=== PATIENT | male | born 1960 | race Caucasian/White ===

== ENCOUNTER 2023-03-16 10:00 | Outpatient (OUT) | payer MEDICARE, SELFPAY ==
[2023-03-16 09:34] LABS: Microalbumin Urine Random <1.3 mg/dL (<=30.0)
[2023-03-16 09:37] LABS: Estimated Average Glucose 206 mg/dL; Glycohemoglobin A1C 8.8 % (4.5-6.2)
[2023-03-16 10:22] LABS: Alanine Aminotransferase 36 U/L (16-63); Albumin Level 3.6 g/dL (3.4-5.0); Alkaline Phosphatase 50 U/L (46-116); Anion Gap 3.4; Aspartate Amino Transferase 22 U/L (15-37); BUN Creatinine Ratio 11.3; Bilirubin Total 0.7 mg/dL (0.2-1.0); Calcium 8.9 mg/dL (8.5-10.1); Carbon Dioxide 30.2 mmol/L (21.0-32.0); Chloride 103 mmol/L (98-107); Chol HDL Ratio 4.2; Cholesterol 158 mg/dL (<=200); Estimated GFR (African America >60 (>=60); Estimated GFR (Non-African Ame >60 (>=60); Globulin 3.7 g/dL; Glucose 180 mg/dL (74-106); HDL Cholesterol 38 mg/dL (40-60); Potassium 3.6 mmol/L (3.5-5.1); Sodium 133 mmol/L (136-145); Total Protein 7.3 g/dL (6.4-8.2); Triglycerides 103 mg/dL (<=150); VLDL CHOLESTEROL 20.6 mg/dL
[2023-03-16 10:31] LABS: Prostate Specific Antigen Scrn 1.98 ng/mL (<=4.00)
[2023-03-16 10:37] LABS: Basophils Absolute Auto 0.1 10^3/uL (0.0-0.1); Eosinophils Absolute Auto 0.3 10^3/uL (0.0-0.7); Eosinophils Percent Auto 3.9 % (0.9-7.0); Hematocrit 43.3 % (42.0-54.0); Hemoglobin 14.3 g/dL (14.0-18.0); Immature Granulocytes Abs Auto 0.02 10^3/uL (0.00-0.03); Immature Granulocytes Pct Auto 0.3 % (0.0-0.5); Lymphocytes Absolute Auto 1.2 10^3/uL (1.2-3.8); Lymphocytes Percent Auto 16.7 % (20.5-60.0); Mean Corpuscular Hemoglobin 28.7 pg (25.9-34.0); Mean Corpuscular Volume 86.8 fL (80.0-94.0); Mean Platelet Volume 10.6 fL (9.5-13.5); Monocytes Absolute Auto 0.5 10^3/uL (0.3-0.8); Monocytes Percent Auto 7.2 % (1.7-12.0); Neutrophils Absolute Auto 5.1 10^3/uL (1.4-6.5); Neutrophils Percent Auto 70.9 % (43.0-75.0); Platelet Count 238 10^3/uL (150-450); Red Blood Count 4.99 10^6/uL (4.70-6.10); Red Cell Distribution Width 13.3 % (11.0-15.0); White Blood Count 7.1 10^3/uL (4.0-11.0)
== END 2023-03-16 10:01 | disposition home or self-care (01) ==
LOC: LAB 10:01
PROVIDERS: PCP Family Medicine; Visit Provider Family Medicine
DX: E11.65 Type 2 diabetes mellitus with hyperglycemia (principal); E78.5 Hyperlipidemia, unspecified; R03.0 Elevated blood-pressure reading, without diagnosis of hypertension; Z12.5 Encounter for screening for malignant neoplasm of prostate
CPT/HCPCS: 36415; 80053; 80061; 82043; 83036; 85025; G0103

== ENCOUNTER 2023-06-25 15:31 | Outpatient (OUT) | payer MEDICARE, SELFPAY ==
--- NOTE | 2023-06-25 15:37 | US_ITS ---
The [address] [address] Patient Name: FLORIAN CARR MRN: [id number] date: 1960 Sex: M Assigned Patient Location: US Current Patient Location: US Accession/Order Number: [id number] Exam Date: 06/25/2023 15:40 Report Date: 06/25/2023 16:09 At the request of: ANIYA GALLOWAY Procedure: US venous doppler LE RT EXAM: US venous doppler LE RT HISTORY: Localized Edema R60.0 COMPARISON: Venous ultrasound study of both legs dated 08/09/2021. TECHNIQUE: Utilizing color-flow duplex scanning and Doppler flow analysis, deep venous system of the right leg was evaluated. FINDINGS: There is normal compressibility seen throughout. There is gross patency identified. Augmentation is seen. There is no evidence of focal area of increased echogenicity within the deep venous system to suggest thrombosis. Visualized portions of the greater saphenous vein and lesser saphenous vein of the superficial venous system appear unremarkable. Subcutaneous edema is noted. US/US venous doppler LE RT IMPRESSION: Grossly unremarkable imaging study of the deep venous system of the right leg as described, no definite evidence of deep venous thrombosis can be identified. Electronically authenticated by: SIA LUNA Date: 06/25/2023 16:09
== END 2023-06-25 15:32 | disposition home or self-care (01) ==
PROVIDERS: PCP Family Medicine; Visit Provider Family Medicine
DX: R60.0 Localized edema (principal)
CPT/HCPCS: 93971

== ENCOUNTER 2024-07-03 09:48 | Outpatient (OUT) | payer MEDICARE, SELFPAY ==
--- OUTSIDE RECORDS SUMMARY | 2024-07-03 10:01 | XMS_ITS | CCD ---
Author Organization [facility] Care Team Providers Care Patent Leather Sorter Name Role Phone REQUEST, DR BOOTHE LISTED Attending Unavaila ble REQUEST, DR BOOTHE LISTED Admitting Unavaila ble LOCKWOOD, DR KAE Kent Primary Care Unavailable REQUEST, DR BOOTHE LISTED Consulting Unavaila ble LOCKWOOD, DR KAE Kent Consulting Unavailable LOCKWOOD, DR KAE Kent Attending Unavailable LOCKWOOD, DR KAE Kent Primary Care Unavailable LOCKWOOD, DR KAE Kent Admitting Unavailable LOCKWOOD, DR KAE Kent Attending Unavailable ZIEBER, DR GARO Love Consulting Unavailable LOCKWOOD, DR KAE Kent Admitting Unavailable LOCKWOOD, DR KAE Kent Primary Care Unavailable LOCKWOOD, DR KAE Kent Consulting Unavailable LOCKWOOD, DR KAE Kent Consulting Unavailable LOCKWOOD, DR KAE Kent Primary Care Unavailable LOCKWOOD, DR KAE Kent Attending Unavailable LOCKWOOD, DR KAE Kent Admitting Unavailable LOCKWOOD, DR KAE Kent Consulting Unavailable LOCKWOOD, DR KAE Kent Attending Unavailable LOCKWOOD, DR KAE Kent Admitting Unavailable LOCKWOOD, DR KAE Kent Primary Care Unavailable LOCKWOOD, DR KAE Kent Consulting Unavailable LOCKWOOD, DR KEA Kent Attending Unavailable LOCKWOOD, DR KAE Kent Admitting Unavailable LOCKWOOD, DR KAE Kent Primary Care Unavailable LOCKWOOD, DR KAE Kent Consulting Unavailable LOCKWOOD, DR KAE Kent Attending Unavailable LOCKWOOD, DR KAE Kent Admitting Unavailable LOCKWOOD, DR KAE Kent Primary Care Unavailable LOCKWOOD, DR KAE Kent Attending Unavailable LOCKWOOD, DR KAE Kent Primary Care Unavailable LOCKWOOD, DR KAE Kent Admitting Unavailable WEST, DR BIBIANA Adams Consulting Unavailable LOCKWOOD, DR KAE Kent Consulting Unavailable LOCKWOOD, DR KAE Kent Consulting Unavailable LOCKWOOD, DR KAE Kent Attending Unavailable LOCKWOOD, DR KAE Kent Primary Care Unavailable LOCKWOOD, DR KAE Kent Admitting Unavailable JAREN ORTEGA Attending Unavailable SHANNON, JAREN Admitting Unavailable SHANNON, JAREN Consulting Unavailable LOCKWOOD, DR KAE Kent Primary Care Unavailable PAY, DR HINTON Attending Unavailable PAY, DR HINTON Admitting Unavailable LOCKWOOD, DR KAE Kent Primary Care Unavailable ZIEBER, DR WYMAN R Consulting Unavailable DR MARY JANE VANG Consulting Unavailable Kae Lockwood Unavailable Allergies Allergy Classification Reported Allergen(s) Allergy Type Date of Onset Reaction(s) Facility (3 sources) patient allergy list reviewed by nurse or physicia Propensity to adverse reactions Comment:Done [employer] Other (3 sources) Allergies Reconciled Propensity to adverse reactions Unknown [employer] Other Medications Current Medications Medication Drug Class(es) Dates Sig (Normalized) Sig (Original) atorvastatin 40 mg oral tablet (3 sources) HMG-CoA Reductase Inhibitor Start: 12-21-2021 take 1 tablet by mouth once daily Atorvastatin Calcium 40 MG Atorvastatin Calcium 40MG, 1 (one) Tablet daily # 90, 12/21/2021, Ref. x2. Active Oral daily Dec, Active glipiZIDE 5 mg / metFORMIN hydrochloride 500 mg oral tablet (2 sources) Biguanide, Sulfonylurea take 1 tablet by mouth every twelve hours glipiZIDE-metFORM IN HCl 5-500 MG 1 tablet with a meal Orally bid Active metFORMIN hydrochloride 500 mg oral tablet (1 source) Biguanide Start: 11-01-2022 take 1 tablet by mouth twice daily metFORMIN HCl 500 MG 1 tablet Orally twice daily for 90 days Oct, Active sulfamethoxazole 800 mg / trimethoprim 160 mg oral tablet (2 sources) Dihydrofolate Reductase Inhibitor Antibacterial, Sulfonamide Antimicrobial take 1 tablet by mouth every twelve hours Bactrim DS 800-160 MG 1 tablet Orally Twice a day for 7 days Active Problems Active Problems Problem Classification Problem Date Documented Da te Episodic/Chronic Diabetes mellitus with complications (8 sources) Hyperglycemia due to type 2 diabetes mellitus; Translations: [Type 2 diabetes mellitus with hyperglycemia] Chronic Disorders of lipid metabolism (7 sources) Hyperlipidemia; Translations: [Hyperlipidemia, unspecified] Chronic Essential hypertension (4 sources) Essential (primary) hypertension; Translations: [Essential hypertension] Onset: 08-29-2021 Chronic Genitourinary symptoms and ill-defined conditions (3 sources) Polyuria; Translations: [Other polyuria] Episodic Osteoarthritis (3 sources) Localized, primary osteoarthritis of the shoulder region; Translations: [Primary osteoarthritis, right shoulder] Onset: 09-21-2014 Chronic Other circulatory disease (3 sources) Elevated blood-pressure reading without diagnosis of hypertension; Translations: [Elevated blood-pressure reading, without diagnosis of hypertension] Episodic Other circulatory disease (1 source) Elevated blood-pressure reading, without diagnosis of hypertension Episodic Other diseases of veins and lymphatics (4 sources) Lymphedema, not elsewhere classified; Translations: [LYMPHEDEMA NOT ELSEWHERE CLASSIFIED] Onset: 03-09-2021 Chronic Other diseases of veins and lymphatics (3 sources) Lymphedema; Translations: [Lymphedema, not elsewhere classified] Chronic Other nervous system disorders (3 sources) Aphasia; Translations: [Aphasia] Onset: 12-02-2014 Chronic Other nutritional; endocrine; and metabolic disorders (6 sources) Obese class II; Translations: [Body mass index (BMI) 36.0-36.9, adult] Chronic Other screening for suspected conditions (not mental disorders or infectious disease) (5 sources) Encounter for screening for malignant neoplasm of prostate; Translations: [ENC SCREEN MALIG NEOPLASM PROSTATE] Onset: 08-23-2021 Episodic Phlebitis; thrombophlebitis and thromboembolism (12 sources) Acute embolism and thrombosis of unspecified deep veins of right lower extremity; Translations: [Acute embolism and thrombosis of right popliteal vein] Onset: 07-07-2014 Episodic Residual codes; unclassified (1 source) Localized edema Episodic Skin and subcutaneous tissue infections (1 source) Cellulitis of right lower limb Episodic Past or Other Problems Problem Classification Problem Date Documented Da te Episodic/Chronic Immunizations and screening for infectious disease (4 sources) Encounter for immunization; Translations: [ENCOUNTER FOR IMMUNIZATION] Onset: 08-09-2021 Episodic Lymphadenitis (1 source) Localized enlarged lymph nodes; Translations: [LOCALIZED ENLARGED LYMPH NODES] Onset: 02-09-2021 Episodic Other nutritional; endocrine; and metabolic disorders (3 sources) Abnormal weight gain; Translations: [Abnormal weight gain] Onset: 02-15-2015 Episodic Other skin disorders (4 sources) Localized swelling, mass and lump, right lower limb; Translations: [LOC SWELL MASS LUMP RT LOWER LIMB] Onset: 02-07-2021 Episodic Spondylosis; intervertebral disc disorders; other back problems (3 sources) Low back pain; Translations: [Low back pain, unspecified] Onset: 12-02-2014 Episodic Results Test Name Value Interpretation Reference Range Facility GLYCOHEMOGLOBIN A1Con 05-04- 2022 ADA RECOMMENDATION SEE BELOW Normal [facility] Comment on above: Result Comment: ADA RECOMMENDED LIMIT 4.0 - 6.0 ADA THERAPEUTIC TARGET < 7.0 ACTION SUGGESTED > 7.0 Performed By: #### D ATA1C #### [facility] [address] [place] [address] Dr. Nabila Tavares Glucose [Mass/Vol] 194 mg/dL Normal [facility] Comment on above: Performed By: #### D ATA1C #### [facility] [address] [place] [address] Dr. Nabila Tavares HbA1c (Bld) [Mass fraction] 8.4 % Critically high 4.5-6.2 [facility] Comment on above: Performed By: #### D ATA1C #### [facility] [address] [place] [address] Dr. Nabila Tavares CBC AUTO DIFFon 08-23-2021 BASO # 0.1 103/ul Normal 0.0-0.1 [facility] Comment on above: Performed By: #### C BC #### [facility] [address] [place] [address] Dr. Nabila Tavares Basophils/100 WBC (Bld) 1.0 % Normal 0.2-2.0 [facility] Comment on above: Performed By: #### C BC #### [facility] [address] [place] [address] Dr. Nabila Tavares EO # 0.3 103/ul Normal 0.0-0.7 [facility] Comment on above: Performed By: #### C BC #### [facility] [address] [place] [address] Dr. Nabila Tavares Eosinophils/100 WBC (Bld) 3.9 % Normal 0.9-7.0 [facility] Comment on above: Performed By: #### C BC #### [facility] [address] [place] [address] Dr. Nabila Tavares Erythrocyte distribution width (RBC) [Ratio] 13.1 % Normal 11.0-15.0 [facility] Comment on above: Performed By: #### C BC #### [facility] [address] [place] [address] Dr. Nabila Tavares Hematocrit (Bld) [Volume fraction] 44.0 % Normal 42.0-54.0 [facility] Comment on above: Performed By: #### C BC #### [facility] [address] [place] [address] Dr. Nabila Tavares Hemoglobin (Bld) [Mass/Vol] 14.7 g/dL Normal 14.0-18.[address] [facility] Comment on above: Performed By: #### C BC #### [facility] [address] [place] [address] Dr. Nabila Tavares IG # 0.03 10e3/ul Normal 0.00-0.03 [facility] Comment on above: Performed By: #### C BC #### [facility] [address] [place] [address] Dr. Nabila Tavares IG % 0.4 % Normal 0.0-0.5 [facility] Comment on above: Performed By: #### C BC #### [facility] [address] [place] [address] Dr. Nabila Tavares LYMPH # 1.0 103/ul Critically low 1.2-3.8 [facility] Comment on above: Performed By: #### C BC #### [facility] [address] [place] [address] Dr. Nabila Tavares Lymphocytes/100 WBC (Bld) 15.0 % Critically low 20.5-60.0 [facility] Comment on above: Performed By: #### C BC #### [facility] [address] [place] [address] Dr. Nabila Tavares MANUAL DIFF REQ NO Normal [facility] Comment on above: Performed By: #### C BC #### [facility] [address] [place] [address] Dr. Nabila Tavares MCH (RBC) [Entitic mass] 28.2 pg Normal 25.9-34.0 [facility] Comment on above: Performed By: #### C BC #### [facility] [address] [place] [address] Dr. Nabila Tavares MCHC (RBC) [Mass/Vol] 33.4 g/dL Normal 29.9-35.2 [facility] Comment on above: Performed By: #### C BC #### [facility] [address] [place] [address] Dr. Nabila Tavares MCV (RBC) [Entitic vol] 84.5 fL Normal 80.0-94.0 [facility] Comment on above: Performed By: #### C BC #### [facility] [address] [address] [address] Nabila Tavares MONO # 0.6 103/ul Normal 0.3-0.8 [facility] Comment on above: Performed By: #### C BC #### [facility] [address] [place] [address] Dr. Nabila Tavares Monocytes/100 WBC (Bld) 8.1 % Normal 1.7-12.0 [facility] Comment on above: Performed By: #### C BC #### [facility] [address] [place] [address] Dr. Nabila Tavares NEUT # 5.0 103/ul Normal 1.4-6.5 [facility] Comment on above: Performed By: #### C BC #### [facility] [address] [place] [address] Dr. Nabila Tavares Neutrophils/100 WBC (Bld) 71.6 % Normal 43.0-75.0 [facility] Comment on above: Performed By: #### C BC #### [facility] [address] [place] [address] Dr. Nabila Tavares Platelet mean volume (Bld) [Entitic vol] 10.2 fL Normal 9.5-13.[address] [facility] Comment on above: Performed By: #### C BC #### [facility] [address] [place] [address] Dr. Nabila Tavares PLT 212 103/ul Normal 150-[address] [facility] Comment on above: Performed By: #### C BC #### [facility] [address] [place] [address] Dr. Nabila Tavares RBC 5.21 106/ul Normal 4.70-6.10 [facility] Comment on above: Performed By: #### C BC #### [facility] [address] [place] [address] Dr. Nabila Tavares WBC 6.9 103/ul Normal 4.0-11.0 [facility] Comment on above: Performed By: #### C BC #### [facility] [address] [place] [address] Dr. Nabila Tavares GLYCOHEMOGLOBIN A1Con 2021 ADA RECOMMENDATION ADA THERAPEUTIC TARGET 6.0 - 7.0 ACTION SUGGESTED > 7.0 Normal [facility] Comment on above: Performed By: #### A 1C #### [facility] [address] [place] [address] Dr. Nabila Tavares Glucose [Mass/Vol] 240 mg/dL Normal [facility] Comment on above: Performed By: #### A 1C #### [facility] [address] [place] [address] Dr. Nabila Tavares HbA1c (Bld) [Mass fraction] 10.0 % Critically high <=6.0 [facility] Comment on above: Performed By: #### A 1C #### [facility] [address] [place] [address] Dr. Nabila Tavares LIPID PROFILEon 08-23-2021 CHOL-HDL RATIO NORM SEE BELOW Normal [facility] Comment on above: Result Comment: 3.3 - 4.4 LOW RISK 4.4 - 7.1 AVERAGE RISK 7.1 - 11.0 MODERATE RISK >11.0 HIGH RISK Performed By: #### C MP, LIPID #### [facility] [address] [place] [address] Dr. Nabila Tavares Cholesterol [Mass/Vol] 217 mg/dL Critically high <=200 [facility] Comment on above: Performed By: #### C MP, LIPID #### [facility] [address] [place] [address] Dr. Nabila Tavares Cholesterol in HDL [Mass/Vol] 39 mg/dL Normal [facility] Comment on above: Performed By: #### C MP, LIPID #### [facility] [address] [address] [address] Nabila Tavares Cholesterol in LDL [Mass/Vol] 154.4 mg/dL Normal [facility] Comment on above: Performed By: #### C MP, LIPID #### [facility] [address] [place] [address] Dr. Nabila Tavares Cholesterol.total/Cho lesterol in HDL [Mass ratio] 5.6 {ratio} Normal [facility] Comment on above: Performed By: #### C MP, LIPID #### [facility] [address] [place] [address] Dr. Nabila Tavares HDL NORMAL > or = 60 mg/dl - LO W CARDIOVASCULAR RISK <40 mg/dl - HIGH CARDIOVASCULAR RISK Normal [facility] Comment on above: Performed By: #### C MP, LIPID #### [facility] [address] [place] [address] Dr. Nabila Tavares LDL CALC NORMAL SEE BELOW Normal [facility] Comment on above: Result Comment: <100 mg/dl OPTIMAL 100 - 129 mg/dl NEAR OR ABOVE OPTIMAL 130 - 159 mg/dl BORDERLINE HIGH 160 - 189 mg/dl HIGH >190 mg/dl VERY HIGH Performed By: #### C MP, LIPID #### [facility] [address] [place] [address] Dr. Nabila Tavares Triglyceride [Mass/Vol] 118 mg/dL Normal <=150 [facility] Comment on above: Performed By: #### C MP, LIPID #### [facility] [address] [place] [address] Dr. Nabila Tavares VLDL CALC 23.6 mg/dL Normal [facility] Comment on above: Performed By: #### C MP, LIPID #### [facility] [address] [address] [address] Nabila Tavares PROF 14(COMP METB)on 022 Albumin [Mass/Vol] 3.9 g/dL Normal 3.5-5.0 [facility] Comment on above: Performed By: #### C MP, LIPID #### [facility] [address] [place] [address] Dr. Nbaila Tavares Albumin/Globulin [Mass ratio] 1.0 {ratio} Normal [facility] Comment on above: Performed By: #### C MP, LIPID #### [facility] [address] [place] [address] Dr. Nabila Tavares ALP [Catalytic activity/Vol] 55 U/L Normal 38-126 [facility] Comment on above: Performed By: #### C MP, LIPID #### [facility] [address] [place] [address] Dr. Nabila Tavares ALT [Catalytic activity/Vol] 33 U/L Normal 21-72 [facility] Comment on above: Performed By: #### C MP, LIPID #### [facility] [address] [place] [address] Dr. Nabila Tavares Anion gap [Moles/Vol] 11.5 mmol/L Normal [facility] Comment on above: Performed By: #### C MP, LIPID #### [facility] [address] [place] [address] Dr. Nabila Tavares AST [Catalytic activity/Vol] 18 U/L Normal 17-59 [facility] Comment on above: Performed By: #### C MP, LIPID #### [facility] [address] [place] [address] Dr. Nabila Tavares Bilirubin [Mass/Vol] 0.8 mg/dL Normal 0.2-1.3 [facility] Comment on above: Performed By: #### C MP, LIPID #### [facility] [address] [place] [address] Dr. Nabila Tavares Calcium [Mass/Vol] 9.4 mg/dL Normal 8.4-10.2 [facility] Comment on above: Performed By: #### C MP, LIPID #### [facility] [address] [place] [address] Dr. Nabila Tavares Chloride [Moles/Vol] 98 mmol/L Normal 98-107 [facility] Comment on above: Performed By: #### C MP, LIPID #### [facility] [address] [place] [address] Dr. Nabila Tavares CO2 [Moles/Vol] 31.8 mmol/L Critically high 22.0-30.0 [facility] Comment on above: Performed By: #### C MP, LIPID #### [facility] [address] [address] [address] Nabila Tavares Creatinine [Mass/Vol] 1.19 mg/dL Normal 0.66-1.25 [facility] Comment on above: Performed By: #### C MP, LIPID #### [facility] [address] [address] [address] Nabila Tavares EGFR-AF MALAYSIAN >60 Normal >=60 [facility] Comment on above: Performed By: #### C MP, LIPID #### [facility] [address] [place] [address] Dr. Nabila Tavares EGFR-NON AF MALAYSIAN >60 Normal >=60 [facility] Comment on above: Performed By: #### C MP, LIPID #### [facility] [address] [place] [address] Dr. Nabila Tavares Globulin (S) [Mass/Vol] 3.8 g/dL Normal [facility] Comment on above: Performed By: #### C MP, LIPID #### [facility] [address] [address] [address] Nabila Tavares Glucose [Mass/Vol] 311 mg/dL Critically high 74-106 [facility] Comment on above: Performed By: #### C MP, LIPID #### [facility] [address] [address] [address] Nabila Tavares Potassium [Moles/Vol] 4.3 mmol/L Normal 3.4-5.0 [facility] Comment on above: Performed By: #### C MP, LIPID #### [facility] [address] [address] [address] Nabila Tavares Protein [Mass/Vol] 7.7 g/dL Normal 6.1-8.2 [facility] Comment on above: Performed By: #### C MP, LIPID #### [facility] [address] [address] [address] Nabila Tavares Sodium [Moles/Vol] 137 mmol/L Normal 137-145 [facility] Comment on above: Performed By: #### C MP, LIPID #### [facility] [address] [address] [address] Nabila Tavares Urea nitrogen [Mass/Vol] 18.0 mg/dL Normal 9.0-20.0 [facility] Comment on above: Performed By: #### C MP, LIPID #### [facility] [address] [address] [address] Nabila Tavares Urea nitrogen/Creatinine [Mass ratio] 15.1 mg/mg Normal [facility] Comment on above: Performed By: #### C MP, LIPID #### [facility] [address] [address] [address] Nabila Tavares US RUMA DOP LEG BILon 022 US RUMA DOP LEG JACQUELINE EXAMINATION: US RUMA DOP LEG JACQUELINE HISTORY: Acute deep venous thrombosis of right lower extremity COMPARISON: No relevant comparison available. TECHNIQUE: Grayscale, color and Doppler FINDINGS: Region: Bilateral legs Thrombus: None Flow: Normal Compressibility: Normal Augmentation: Normal Other: Subcutaneous edema in the lower legs. Borderline enlarged right inguinal lymph node measuring 1.4 x 1.8 x 1.0 cm IMPRESSION: No deep vein thrombus in the legs *Exam performed in accordance with [facility] practice guidelines- Peripheral venous ultrasound, October 09, 2009. Electronically authenticated by: BIBIANA GUERIN Date: 2021-08-09 12:48 Normal [facility] PROTIMEon 07-28-2021 INR Coag (PPP) [Relative time] 1.86 {INR} Normal [facility] Comment on above: Performed By: #### P T #### [facility] [address] [place] [address] Dr. Nabila Tavares INR GUIDELINES SEE BELOW Normal [facility] Comment on above: Result Comment: ALANNA RED INR: 2.0 - 3.0 CONDITIONS NOT LISTED BELOW 2.5 - 3.5 FOR PROSTHETIC HEART VALVE REPLACEMENT 2.5 - 3.5 RECURRENT THROMBOSIS Performed By: #### P T #### [facility] [address] [address] [address] Nabila Tavares PT Coag (PPP) [Time] 19.3 s Critically high 9.0-11.6 [facility] Comment on above: Performed By: #### P T #### [facility] [address] [address] [address] Nabila Tavares PROTIMEon 05-17-2021 INR Coag (PPP) [Relative time] 1.74 {INR} Normal [facility] Comment on above: Performed By: #### P T ####[facility] [id number] [address]Dr. Nabila Tavares INR GUIDELINES SEE BELOW Normal [facility] Comment on above: Result Comment: ALANNA RED INR: 2.0 - 3.0 CONDITIONS NOT LISTED BELOW 2.5 - 3.5 FOR PROSTHETIC HEART VALVE REPLACEMENT 2.5 - 3.5 RECURRENT THROMBOSIS Performed By: #### P T ####[facility] [id number] [address]Dr. Nabila Tavares PT Coag (PPP) [Time] 18.1 s Critically high 9.0-11.6 [facility] Comment on above: Performed By: #### P T ####[facility] [id number] [address]Dr. Nabila Tavares PROTIMEon 04-05-2021 INR Coag (PPP) [Relative time] 2.21 {INR} Normal [facility] Comment on above: Performed By: #### P T #### [facility] [address] [address] [address] Nabila Tavares INR GUIDELINES SEE BELOW Normal [facility] Comment on above: Result Comment: ALANNA RED INR: 2.0 - 3.0 CONDITIONS NOT LISTED BELOW 2.5 - 3.5 FOR PROSTHETIC HEART VALVE REPLACEMENT 2.5 - 3.5 RECURRENT THROMBOSIS Performed By: #### P T #### [facility] [address] [address] [address] Nabila Tavares PT Coag (PPP) [Time] 22.7 s Critically high 9.0-11.6 [facility] Comment on above: Performed By: #### P T #### [facility] [address] [address] [address] Nabila Tavares PT/INR Outpatient Ctr Perfor mon 03-18-2021 INR OP Cntr Performed 3.40 High 0.70-1.20 Mar [facility] Comment on above: Result Comment: THER APEUTIC: Low Level Coumadin = 2.0 - 3.0 High Level Coumadin = 2.5 - 3.5 Testing performed at Outpatient Center Performed By: #### O PPTINR #### [facility] [address] [place] [address] , Aaron Talbot M.D. FCAP, FASCP Protime OP Cntr Performed 38.2 Sec Normal [facility] Comment on above: Performed By: #### O PPTINR #### [facility] [address] [place] [address] , Aaron Talbot M.D. FCAP, FASCP PROTIMEon 03-10-2021 INR Coag (PPP) [Relative time] {INR} Critically high [facility] Comment on above: Performed By: #### P T #### [facility] [address] [address] Odalys Medellin INR GUIDELINES SEE BELOW Normal [facility] Comment on above: Result Comment: ALANNA RED INR: 2.0 - 3.0 CONDITIONS NOT LISTED BELOW 2.5 - 3.5 FOR PROSTHETIC HEART VALVE REPLACEMENT 2.5 - 3.5 RECURRENT THROMBOSIS Performed By: #### P T #### [facility] [address] [id number] Odalys Medellin PT Coag (PPP) [Time] s Critically high 9.0-11.6 [facility] Comment on above: Performed By: #### P T #### [facility] [address] [id number] Odalys Medellin US EXT NON VASC LIMITED RTon 03-09-2021 US EXT NON VASC LIMITED RT EXAMINATION: US EXT NON VASC LIMITED RT HISTORY: Lymphedema COMPARISON: Ultrasound venous Doppler right leg 02/07/2021 FINDINGS: Prominent lymph node within the right groin, 2.2 x 1.8 x 1.2 cm (previously 2.8 x 2.4 x 1.6 cm). Adjacent similar-appearing 1.8 cm lymph node. Previously seen subcutaneous edema has resolved. IMPRESSION: 1. Nonspecific but slightly prominent lymph nodes within the right groin, decreased in size compared to prior study. These are likely reactive, clinical follow-up is recommended. 2. Resolution of previously seen subcutaneous edema. Electronically authenticated by: GARO CARVAJAL Date: 2021-03-09 15:59 Normal [facility] Protime with INR ([facility] )on 02-16-2021 INR Coag (PPP) [Relative time] 2.1 {INR} Normal [facility] Comment on above: Result Comment: FLAG : H Reference Range 0.9-1.1 Moderate-intensity Warfarin Therapy 2.0-3.0 Higher-intensity Warfarin Therapy 3.0-4.0 PT Coag (PPP) [Time] 21.[address] [facility] Comment on above: Result Comment: FLAG : H Reference Range: 9.0-11.5 Units: sec For additional information, please refer to http://education.BuildOut.Nextworth/faq/[email or web address] (This link is being provided for informational/ educational purposes only.) THIS TEST WAS PERFORMED AT: [employer] [facility] [address] AMADO PAUL MD PROTIMEon 02-10-2021 INR Coag (PPP) [Relative time] 1.32 {INR} Normal [facility] Comment on above: Performed By: #### P T ####[facility] [address] [address]Odalys Medellin INR GUIDELINES SEE BELOW Normal [facility] Comment on above: Result Comment: ALANNA RED INR: 2.0 - 3.0 CONDITIONS NOT LISTED BELOW 2.5 - 3.5 FOR PROSTHETIC HEART VALVE REPLACEMENT 2.5 - 3.5 RECURRENT THROMBOSIS Performed By: #### P T ####[facility] [address] [address]Odalys Medellin PT Coag (PPP) [Time] 14.0 s Critically high 9.0-11.6 [facility] Comment on above: Performed By: #### P T ####[facility] [address] [place], [place] [address]VkctclOdalys Medellin US RUMA DOP LEG RTon 02-08-20 US RUMA DOP LEG RT EXAMINATION: US RUMA DOP LEG RT HISTORY: Pain ; right calf swelling and erythema COMPARISON: No relevant comparison available. FINDINGS: REGION: Right lower extremity THROMBI: None compressible thrombus within the popliteal vein and proximal posterior tibial vein. COMPRESSIBILITY: Noncompressible thrombus. FLOW: No flow within the popliteal and proximal posterior tibial veins. OTHER: Lobular mass within the right groin, nonspecific but likely inflamed or atypical lymph node. Follow-up to document regression is recommended. Scattered areas of subcutaneous edema. IMPRESSION: 1. Acute deep vein thrombus within the popliteal vein and proximal posterior tibial vein. 2. Subcutaneous edema. 3. Atypical lymph node versus mass within the left groin. Follow-up ultrasound evaluation in 4-6 weeks to document resolution is recommended. Electronically authenticated by: GARO CARVAJAL Date: 2021-02-07 13:35 Normal [address] [facility] Vital Signs Date Time Vital Sign Value Performing Clinician Facility 06-25-2023 15:00-0500 Body height 177.8 cm Kae Lockwood Other [facility] Other 06-25-2023 15:00-0500 Body mass index (BMI) [Ratio] 36.87 kg/m2 Kae Lockwood Other [facility] Other 06-25-2023 15:00-0500 Body weight 116.58 kg Kae Lockwood Other [facility] Other 06-25-2023 15:00-0500 Diastolic blood pressure 76 mm[Hg] Kae Lockwood Other [facility] Other 06-25-2023 15:00-0500 Systolic blood pressure 136 mm[Hg] Kae Lockwood Other [facility] Other 03-07-2023 10:15-0400 Body height 177.8 cm Kae Lockwood Other [facility] Other 03-07-2023 10:15-0400 Body mass index (BMI) [Ratio] 33.43 kg/m2 Kae Lockwood Other [facility] Other 03-07-2023 10:15-0400 Body weight 105.69 kg Kae Lockwood Other [facility] Other 03-07-2023 10:15-0400 Diastolic blood pressure 68 mm[Hg] Kae Lockwood Other [facility] Other 03-07-2023 10:15-0400 Systolic blood pressure 106 mm[Hg] Kae Lockwood Other [facility] Other Encounters Encounter Date Encounter Type Care Provider Facility Start: 06-26-2023 End: 06-26-2023 ambulatory Kae Lockwood Other [facility] Other Start: 06-26-2023 Telephone encounter Kae Lockwood [facility] Start: 06-25-2023 End: 06-25-2023 ambulatory Kae Lockwood Other [facility] Other Start: 06-25-2023 Office outpatient vi sit 25 minutes Kae Lockwood [facility] Start: 03-07-2023 End: 03-07-2023 ambulatory Kae Lockwood Other [facility] Other Start: 03-07-2023 Encounter for genera l adult medical examination without abnormal findings Kae Lockwood [facility] Start: 03-07-2023 Periodic preventive med est patient 40-64yrs Kae Lockwood [facility] Start: 11-16-2021 End: 11-17-[address] BOOTHE LISTED REQUEST Facility:[facility] Start: 08-23-2021 End: 08-24-[address] KAE LOCKWOOD Facility:[facility] Start: 02-01-2022 Adult health examination Kae Lockwood Other [facility] Other Start: 08-09-2021 End: 08-10-2021 ambulatory JAREN ORTEGA Facility:[facility] Start: 07-28-2021 End: 07-29-[address] KAE LOCKWOOD Facility:[facility] Start: 05-17-2021 End: 05-18-[address] KAE LOCKWOOD Facility:[facility] Start: 04-05-2021 End: 04-06-[address] KAE LOCKWOOD Facility:[facility] Start: 03-10-2021 End: 03-11-[address] KAE LOCKWOOD Facility:[facility] Start: 03-09-2021 End: 03-10-[address] KAE LOCKWOOD Facility:[facility] Start: 02-10-2021 End: 02-11-[address] KAE LOCKWOOD Facility:[facility] Start: 02-07-2021 End: 02-07-[address] MARY JANE VANG Facility:[facility] Procedures Date Procedure Procedure Detail Performing Clinician Start: 08-23-[address] SHYANN Lundy IST[facility] REQUEST Comment on above: Performed By: #### P [facility] ####[facility] [address] [place], [place] [address]DrJose Tavares Screening for malign ant neoplasm of prostate Kae Lockwood Other Payers Date Payer Category Payer Unknown [id number] 2.16.84 [id number] 1960 Unknown [id number] 2.16.84 [id number] 1960 Unknown [id number] 2.16.84 [id number] 1960 Unknown [id number] 2.16.84 [id number] 1960 Unknown [id number] 2.16.84 [id number] 1960 Unknown [id number] 2.16.84 [id number] 1960 Unknown [id number] 2.16.84 [id number] 1960 Unknown [id number] 2.16.84 [id number] 1960 Unknown [id number] 2.16.84 [id number] 1957 Medicare [id number] 1957 Self-pay [id number] Unknown [id number] 2.16.84 [id number] Unknown [id number] 2.16.84 [id number] Social History Date Type Detail Facility Unknown if ever smoked [facility] Other Sex Assigned At Sex Assigned At Bir th [facility] Other Evaluation note 06-25-2023 Note Date & Type Note Facility 06-25-2023 Evaluation note Encounter Date Diagnosis Assessment Notes Jun, Edema of right lower extremity (ICD-10 - R60.0) Hx DVT - will check US LEANA Jun, Cellulitis of right leg (ICD-10 - L03.115) US neg for DVT. Hx of cellulitis as well. Will treat w antibiotics. ER Or call if redness/swell ing worsens. Jun, Type 2 diabetes mellitus with hyperglycemia (ICD-10 - E11.65) diabetic eye exam annually [facility] Other Evaluation note 03-07-2023 Note Date & Type Note Facility 03-07-2023 Evaluation note Encounter Date Diagnosis Assessment Notes Feb, Type 2 diabetes mellitus with hyperglycemia (ICD-10 - E11.65) Healthy diet and exercise encouraged. Weight loss helps to reduce blood sugars and A1C. Wear supportive shoes, avoid open toed shoes. Check feet daily. Yearly eye exam is extremely important Feb, Hyperlipidemia, unspecified (ICD-10 - E78.5) Labs reviewed and discussed. Low cholesterol diet plan article printed and discussed Feb, Elevated blood-pressure reading, without diagnosis of hypertension (ICD-10 - R03.0) OK to d/c HCTZ Feb, Screening PSA (prostate specific antigen) (ICD-10 - Z12.5) Feb, Well adult exam (ICD-10 - Z00.00) We have discussed the necessity of following up with PCP regularly as well as specialists, as needed. Discussed F/U with dentistry and optometry at least yearly. Discussed all preventative measures/ cancer screenings as applicable to this patient. Emphasized the importance of a reduced fat, low carb diet to promote heart health and controlled blood sugars. Reviewed social history and ensured patient is safe within the home today. Pt denies any abuse of alcohol, nicotine, caffeine or recreational drugs. I have ensured patient is of stable mental and physical health today. We have discussed appropriate F/U schedule as well as blood work and vaccinations that apply. All questions answered and patient is sent home pleased, without concerns. [facility] Other Evaluation note Note Date & Type Note Facility Evaluation note No Information [facility] Other History general Narrative - Reported Note Date & Type Note Facility History general Narrative - Reported Type Medical History Type 2 diabetes nohelia itus with hyperglycemia Medical History Hyperlipidemia, unspecified Surgical History skull surgery Hospitalization History see surgical hx [facility] Other Summary Purpose Family History No Family History Records FoundNo Family History Records Found Advance Directives No Advanced Directives Records FoundNo Advanced Directives Records Found Additional Source Comments (unrecognized sect ion and content) No Status Records FoundNo Status Records Found INFORMATION SOURCE (unrecogn ized section and content) DATE CREATED AUTHOR 08/12/2021 [facility] DATE CREATED AUTHOR AUTHOR'S ORGANIZ ATION 11/24/2021 [facility] REASON FOR VISIT (unrecogniz ed section and content) [facility] FOR RECORDS PERTAINING TO PATIENTS WHO ARE OR HAVE BEEN ENROLLED IN A CHEMICAL DEPENDENCY/SUBSTANCEABUSE PROGRAM, SOME INFORMATION MAY BE OMITTED. This clinical summary was aggregated from multiple sources. Caution should be exercised in using it in the provision of clinical care. This summary normalizes information from multiple sources, and as a consequence, information in this document may materially change the coding, format and clinical context of patient data. In addition, data may be omitted in some cases. CLINICAL DECISIONS SHOULD BE BASED ON THE PRIMARY CLINICAL RECORDS. [facility] [facility]. provides no warranty or guarantee of the accuracy or completeness of information in this document.
[2024-07-03 10:32] LABS: Basophils Absolute Auto 0.1 10^3/uL (0.0-0.1); Eosinophils Absolute Auto 0.4 10^3/uL (0.0-0.7); Eosinophils Percent Auto 5.3 % (0.9-7.0); Immature Granulocytes Abs Auto 0.05 10^3/uL (0.00-0.03); Immature Granulocytes Pct Auto 0.7 % (0.0-0.5); Lymphocytes Absolute Auto 1.2 10^3/uL (1.2-3.8); Lymphocytes Percent Auto 16.8 % (20.5-60.0); Mean Corpuscular HGB Conc 33.3 g/dL (29.9-35.2); Mean Corpuscular Hemoglobin 29.3 pg (25.9-34.0); Mean Corpuscular Volume 87.9 fL (80.0-94.0); Monocytes Absolute Auto 0.5 10^3/uL (0.3-0.8); Monocytes Percent Auto 7.3 % (1.7-12.0); Neutrophils Percent Auto 68.9 % (43.0-75.0); Platelet Count 246 10^3/uL (150-450); Red Blood Count 5.12 10^6/uL (4.70-6.10); Red Cell Distribution Width 12.6 % (11.0-15.0); White Blood Count 7.3 10^3/uL (4.0-11.0)
[2024-07-03 10:40] LABS: Creatinine Urine Random 207.23 mg/dL (20.00-300.00); Microalbum Creatinine Ratio Ur 55.9 mg/g (0.0-29.9); Microalbumin Urine Random 11.6 mg/dL (<=30.0)
[2024-07-03 10:42] LABS: Estimated Average Glucose 214 mg/dL; Glycohemoglobin A1C 9.1 % (4.5-6.2)
[2024-07-03 10:44] LABS: Chol HDL Ratio 3.6; Cholesterol 148 mg/dL (<=200); HDL Cholesterol 41 mg/dL (40-60); Triglycerides 55 mg/dL (<=150)
[2024-07-03 11:31] LABS: Prostate Specific Antigen Scrn 1.52 ng/mL (<=4.00)
== END 2024-07-03 09:49 | disposition home or self-care (01) ==
PROVIDERS: PCP Family Medicine; Visit Provider Family Medicine
DX: Z00.00 Encounter for general adult medical examination without abnormal findings (principal); E11.65 Type 2 diabetes mellitus with hyperglycemia; E78.5 Hyperlipidemia, unspecified; I10 Essential (primary) hypertension; Z12.5 Encounter for screening for malignant neoplasm of prostate
CPT/HCPCS: 36415; 80061; 82043; 82570; 83036; 85025; G0103

== ENCOUNTER 2025-04-20 11:01 | Outpatient (OUT) | payer MEDICARE, SELFPAY ==
--- OUTSIDE RECORDS SUMMARY | 2014-10-29 12:16 | XMS_ITS | Encounter Summary ---
Author Organization [facility] Address [address] [place] [address], [address] [place] [address] Care Team Providers Care Production Staff Worker Name Role Phone Kae Lockwood MD Primary Care Provider [phone] Encounter Details Date Type Department Care Team (Late st Contact Info) Description 10/29/2014 12:16 PM EDT Hospital Encounter [facility] [address] [place] [address] Sandra Hill MD Social History Tobacco Use Types Packs/Day Years Used Date Smoking Tobacco: Never Alcohol Use Standard Drinks/Week Comments Not Asked 0 (1 standard drink = 0.6 oz pur e alcohol) Sex and Gender Information Value Date Recorded Sex Assigned at Not on file Legal Sex Male 8:54 PM EST Gender Identity Not on file Sexual Orientation Not on file documented as of this encounter Plan of Treatment Not on file documented as of this encounter Visit Diagnoses Not on filedocumented in this encounter Care Teams Production Staff Worker Relationship Specialty Start Date End Date Kae Lockwood MD PCP - General 07/17/14 documented as of this encounter
--- OUTSIDE RECORDS SUMMARY | 2025-04-20 06:50 | XMS_ITS | Continuity of Care Document ---
Author Organization [facility] Address [address] [place] [address] Phone Care Team Providers Care Mechanical Process Engineer Name Role Phone Kae Lockwood MD Primary Care Provider Kae Lockwood MD Attending Provider [phone] Care Teams Patient Care Team Team Status: Active Member Role Status Dates Kae Lockwood MD Primary Care Provider Active Patient Care Team Team Status: Inactive Member Role Status Dates Kae Lockwood MD Primary Care Provider Active Start: April 20, 2025 End: April 20, 2025 Kae Lockwood MD Attending Provider Active St art: April 20, 2025 End: April 20, 2025 Chief Complaint and Reason for Visit Chief Complaint Admit Date Back Pain April 20, 2025 10 :15am Reason for Visit Admit Date Left leg pain April 20, 2025 10 :15am Left lumbar radiculitis April 20 10:15am Allergies, Adverse Reactions, Alerts Allergen Type Severity Reaction Last Updated Verified Status No Known Allergies Allergy Unknown Octobe r 2024 10:23am Yes Active Social History Smoking Status Unknown if ever smoked Observation Status Observation Response Date of Response Legal Sex Male (finding) Sex Assigned At Male 1960 Family History Relationship Condition Age at Onset Recorded Date/T delmi brother Heart disease Unknown father Malignant neoplasm Unknown Family history of lung cancer Unknown sister Hypertension Unknown Problems Active Problems Medical Problem Onset Date Status Screening PSA (prostate specific antigen) Unknow n Active Left lumbar radiculitis Unknown Active Type 2 diabetes mellitus with hyperglycemia Unkn own Active Wellness examination Unknown Active Hyperlipidemia, unspecified Unknown Acti ve Left leg pain Unknown Active Essential (primary) hypertension Unknown Active Medications Medication Status Dose Units Route Directions Qty Days St art Date Stop Date End Date Instructions Adherence Glipizide-M etformin 5-500 mg tablet Discont inued 0 .ROUTE .COMPLEX 180 January 28, 2024 10:00a m Octob er 2023 11:06 am TAKE 1 TABLET BY MOUTH 2 TIMES A DAY Glipizide-M etformin 5-500 mg tablet Discont inued 0 .ROUTE .COMPLEX 180 Octobe r 2023 11:06a m Janua ry 2024 1:44p m TAKE 1 TABLET BY MOUTH 2 TIMES A DAY Glipizide-M etformin 5-500 mg tablet Discont inued 0 .ROUTE .COMPLEX 180 r 2024 1:44pm October 21, 2024 8:29a m TAKE 1 TABLET BY MOUTH 2 TIMES A DAY Atorvastati n 40 mg tablet Discont inued 40 MG PO Daily 2024 5:16pm November 07, 2024 1:11p m Glipizide-M etformin 5-500 mg tablet Discont inued 0 .ROUTE .COMPLEX 180 October 21, 2024 8:29am January 19, 2025 4:31p m TAKE 1 TABLET BY MOUTH 2 TIMES A DAY Atorvastati n 40 mg tablet Active 0 .ROUTE .COMPLEX 90 November 07, 2024 1:11pm TAKE 1 TABLET BY MOUTH DAILY Complies with drug therapy Glipizide-M etformin 5-500 mg tablet Discont inued 0 .ROUTE .COMPLEX 180 January 19, 2025 4:31pm Octob er 2024 9:35a m TAKE 1 TABLET BY MOUTH 2 TIMES A DAY Glipizide-M etformin 5-500 mg tablet Active 0 .ROUTE .COMPLEX 180 Octobe r 2024 9:35am TAKE 1 TABLET BY MOUTH 2 TIMES A DAY Complies with drug therapy Glipizide-M etformin 5-500 mg tablet Discont inued 1 TAB PO Twice daily October 23, 2023 12:00a m October 23, 2023 10:01 am Atorvastati n 40 mg tablet Discont inued 40 MG PO Daily October 23, 2023 12:00a m Julua ry 2024 5:16p m Glipizide-M etformin 5-500 mg tablet Discont inued 1 TAB PO Twice daily 180 October 23, 2023 10:01a m January 28, 2024 10:00 am Vital Signs Vital Reading Result Reference Range Collection Date/Time Height 70 [in_i] April 20 10:23am Weight 111.30 kg April 20 10:23am Heart Rate 72 /min 60-100 April 20 10:26am BP Systolic 162 mm[Hg] 100-140 April 20 10:26am BP Diastolic 95 mm[Hg] 60-100 April 20 10:26am BMI (Body Mass Index) 35.2 kg/m2 Octobe r 2024 10:23am Advance Directives Advance Directive Response Recorded Date/ Time Advance Directives No June 10:52am Insurance Providers Guarantor Ruben Galvez Address [address] [place] [phone] Contact Info. Home Phone: Payer Policy Id Subscriber's Name Subscriber Id Effective Date Expiration Date MMO [id number] Ruben Galvez [id number] Medicare [id number] Ruben Galvez [id number] [facility] [id number] [facility] [id number] Encounters Encounter Location(s) Arrival/Admit Date Discharge/Depart Date Provider(s) Departed Physician/Prov ider Office Visit -[facility] April 20, 2025 10:15am April 20, 2025 10:49am Kae Lockwood MD Recent Diagnosis Onset Date Admit Date Left leg pain Unknown April 20 10:15am Left lumbar radiculitis Unknown April 20, 2025 10:15am Assessments Diagnosis Onset Date Resolution Status Admit Date Left leg pain acute April 10:15am Left lumbar radiculitis acute O ctober 2024 10:15am Plan of Treatment Future Tests Future scheduled test information is unavailable Pending Tests Test Name Ordered Date Scheduled Date XR lumbar spine 2-3V* April 20, 2025 10:43am US venous duplex LE LT April 20, 2025 10:44am Future Visits Future appointment information is unavailable Referrals to Other Providers Referral information is unavailable Future Procedures Future procedure information is unavailable Future Medications Future medication information is unavailable Patient Instructions Patient instructions are unavailable
--- OUTSIDE RECORDS SUMMARY | 2025-04-20 11:05 | XMS_ITS | Patient Health Record ---
Author Organization [facility] Address [address] [place] [address] [place] [address] Support Name Relationship Address Phone Adry Galvez Emergency Contact [address] [place] [phone] Ruben Galvez Guarantor Unknown [phone] Reason For Referral No Information Plan Of Treatment No Information Insurance Providers Payer Name Payer Address Payer Phone Subscriber Number Group Number Insured Name Patient Relationship to Insured Coverage Start Date Coverage End Date [facility] [address] [place] [phone] [id number] Ruben Galvez Self - patient is the insured [employer] [address] [place] [address] [id number] Ruben Galvez Self - patient is the insured
--- OUTSIDE RECORDS SUMMARY | 2025-04-20 11:05 | XMS_ITS | Clinical Summary ---
Author Organization [facility] Address [id number] [place] [address] Care Team Providers Care Sand Caster Apprentice Name Role Phone Unavailable Primary Care Provider Unavailabl e Social History Tobacco Use Types Packs/Day Years Used Date Smoking Tobacco: Never Assessed Childcare Answer Date Recorded Childcare Unknown 12/25/2018 Employment Answer Date Recorded Employment Unknown 12/25/2018 Sex and Gender Information Value Date Recorded Sex Assigned at Not on file Legal Sex Male 11:56 AM EDT Gender Identity Not on file Sexual Orientation Not on file Plan of Treatment Not on file Medical Devices Not on file
--- OUTSIDE RECORDS SUMMARY | 2025-04-20 11:05 | XMS_ITS | Patient Health Record ---
Author Organization [facility] [place] Address [address] [place] [address] Care Team Providers Care Member Services Representative Name Role Phone Kae Lockwood Primary Care Provider Unavailabl e Reason For Referral No Information Medications Medication SIG (Take, Route, Frequency, Duration) Notes Start Date End Date Status Furosemide Active Ocuflox 0.3 % ONE DROP OS Ophthalm ic Four times a day; Duration: 7 days 03/30/2016 Active Plan Of Treatment No Information Insurance Providers Payer Name Payer Address Payer Phone Subscriber Number Group Number Insured Name Patient Relationship to Insured Coverage Start Date Coverage End Date [facility] [address] [place], [place] [id number] Ruben Galvez Self - patient is the insured 5 [facility] [address] [address] [place] [address] [id number] Ruben Galvez Self - patient is the insured 5
--- OUTSIDE RECORDS SUMMARY | 2025-04-20 11:05 | XMS_ITS | Clinical Summary ---
Author Organization [facility] Address [address] [place] [address], [address] [place] [address] Care Team Providers Care Assembler Finger Buffs Name Role Phone Kae Lockwood MD Primary Care Provider [phone] Allergies No known active allergies Medications No known medications Active Problems Problem Noted Date Diagnosed Date Thrombophlebitis of right arm 06/05/2014 Superficial thrombophlebitis 06/05/2014 Pulmonary contusion 06/04/2014 Scalp laceration 06/04/2014 Laceration of left elbow 06/04/2014 Respiratory failure 05/30/2014 Head trauma 05/26/2014 Overview (05/26/2014): Depressed skull fracture 05/26/2014 Overview (05/26/2014): \ Pneumocephalus, 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 Immunizations Immunization Administration Dates Next Due Td, unspecified formulation 05/26/2014 Social History Tobacco Use Types Packs/Day Years Used Date Smoking Tobacco: Never Alcohol Use Standard Drinks/Week Comments Not Asked 0 (1 standard drink = 0.6 oz pur e alcohol) Sex and Gender Information Value Date Recorded Sex Assigned at Not on file Legal Sex Male 8:54 PM EST Gender Identity Not on file Sexual Orientation Not on file Last Filed Vital Signs Vital Sign Reading Time Taken Comments Blood Pressure 141/89 08/27/2014 12:24 PM EST Pulse 114 08/27/2014 12:24 PM EST Temperature 36.4 C (97.5 F) 08/27/2014 12:24 PM EST Respiratory Rate 22 06/11/2014 12:00 AM EST Oxygen Saturation 93% 06/11/2014 8:00 AM EST Inhaled Oxygen Concentration - - Weight 81.6 kg (180 lb) 08/27/2014 12:24 PM EST Height 176.5 cm (5' 9.5 ) 08/27/2014 12:24 PM ES T Body Mass Index 26.2 08/27/2014 12:24 PM EST Plan of Treatment Not on file Insurance [employer] Advance Directives * Full Code (Latest Code Status on File) Date Activated Date Inactivated Comments 05/27/2014 12:12 PM 06/11/2014 1:16 PM * Full Code Date Activated Date Inactivated Comments 05/26/2014 11:25 PM 05/27/2014 12:12 PM Care Teams Assembler Finger Buffs Relationship Specialty Start Date End Date Kae Lockwood MD PCP - General 07/17/14
--- OUTSIDE RECORDS SUMMARY | 2025-04-20 11:09 | XMS_ITS | CCD ---
Author Organization [facility] Care Team Providers Care Tip Inserter Name Role Phone REQUEST, DR BOOTHE LISTED [...] or physicia Propensity to adverse reactions Comment:Done [facility] Other (3 sources) Allergies Reconciled Propensity to adverse reactions Unknown [facility] Other Medications Current Medications Medication Drug Class(es) [...] 7.0 Performed By: #### D ATA1C #### [facility] [address] [place] [address] Dr. Nabila Tavares Glucose [Mass/Vol] 194 mg/dL Normal [facility] Comment on above: Performed By: #### D ATA1C #### [facility] [address] [place] [address] Dr. Nabila Tavares HbA1c (Bld) [Mass fraction] 8.4 % Critically high 4.5-6.2 [facility] Comment on above: Performed By: #### D ATA1C #### [facility] [address] [place] [address] Dr. Nabila Tavares CBC AUTO DIFFon 08-23-2021 BASO # 0.1 103/ul Normal 0.0-0.1 [facility] Comment on above: Performed By: #### C BC #### [facility] [address] [place] [address] Dr. Nabila Tavares Basophils/100 WBC (Bld) 1.0 % Normal 0.2-2.0 [facility] Comment on above: Performed By: #### C BC #### [facility] [address] [place] [address] Dr. Nabila Tavares EO # 0.3 103/ul Normal 0.0-0.7 [facility] Comment on above: Performed By: #### C BC #### [facility] [address] [place] [address] Dr. Nabila Tavares Eosinophils/100 WBC (Bld) 3.9 % Normal 0.9-7.0 [facility] Comment on above: Performed By: #### C BC #### [facility] [address] [place] [address] Dr. Nabila Tavares Erythrocyte distribution width (RBC) [Ratio] 13.1 % Normal 11.0-15.0 [facility] Comment on above: Performed By: #### C BC #### [facility] [address] [place] [address] Dr. Nabila Tavares Hematocrit (Bld) [Volume fraction] 44.0 % Normal 42.0-54.0 [facility] Comment on above: Performed By: #### C BC #### [facility] [address] [place] [address] Dr. Nabila Tavares Hemoglobin (Bld) [Mass/Vol] 14.7 g/dL Normal 14.0-18.0 [facility] Comment on above: Performed By: #### C BC #### [facility] [address] [place] [address] Dr. Nabila Tavares IG # 0.03 10e3/ul Normal 0.00-0.03 [facility] Comment on above: Performed By: #### C BC #### [facility] [address] [place] [address] Dr. Nabila Tavares IG % 0.4 % Normal 0.0-0.5 [facility] Comment on above: Performed By: #### C BC #### [facility] [address] [place] [address] Dr. Nabila Tavares LYMPH # 1.0 103/ul Critically low 1.2-3.8 [facility] Comment on above: Performed By: #### C BC #### [facility] [address] [place] [address] Dr. Nabila Tavares Lymphocytes/100 WBC (Bld) 15.0 % Critically low 20.5-60.0 [facility] Comment on above: Performed By: #### C BC #### [facility] [address] [place] [address] Dr. Nabila Tavares MANUAL DIFF REQ NO Normal [facility] Comment on above: Performed By: #### C BC #### [facility] [address] [place] [address] Dr. Nabila Tavares MCH (RBC) [Entitic mass] 28.2 pg Normal 25.9-34.0 [facility] Comment on above: Performed By: #### C BC #### [facility] [address] [place] [address] Dr. Nabila Tavares MCHC (RBC) [Mass/Vol] 33.4 g/dL Normal 29.9-35.2 [facility] Comment on above: Performed By: #### C BC #### [facility] [address] [place] [address] Dr. Nabila Tavares MCV (RBC) [Entitic vol] 84.5 fL Normal 80.0-94.0 [facility] Comment on above: Performed By: #### C BC #### [facility] [address] [address] [address] Nabila Tavares MONO # 0.6 103/ul Normal 0.3-0.8 [facility] Comment on above: Performed By: #### C BC #### [facility] [address] [place] [address] Dr. Nabila Tavares Monocytes/100 WBC (Bld) 8.1 % Normal 1.7-12.0 [facility] Comment on above: Performed By: #### C BC #### [facility] [address] [place] [address] Dr. Nabila Tavares NEUT # 5.0 103/ul Normal 1.4-6.5 [facility] Comment on above: Performed By: #### C BC #### [facility] [address] [place] [address] Dr. Nabila Tavares Neutrophils/100 WBC (Bld) 71.6 % Normal 43.0-75.0 [facility] Comment on above: Performed By: #### C BC #### [facility] [address] [place] [address] Dr. Nabila Tavares Platelet mean volume (Bld) [Entitic vol] 10.2 fL Normal 9.5-13.5 [facility] Comment on above: Performed By: #### C BC #### [facility] [address] [place] [address] Dr. Nabila Tavares PLT 212 103/ul Normal 150-450 [facility] Comment on above: Performed By: #### C BC #### [facility] [address] [place] [address] Dr. Nabila Tavares RBC 5.21 106/ul Normal 4.70-6.10 [facility] Comment on above: Performed By: #### C BC #### [facility] [address] [place] [address] Dr. Nabila Tavares WBC 6.9 103/ul Normal 4.0-11.0 [facility] Comment on above: Performed By: #### C BC #### [facility] [address] [place] [address] Dr. Nabila Tavares GLYCOHEMOGLOBIN A1Con 2021 ADA RECOMMENDATION ADA THERAPEUTIC TARGET 6.0 - 7.0 ACTION SUGGESTED > 7.0 Normal [facility] Comment on above: Performed By: #### A 1C #### [facility] [address] [place] [address] Dr. Nabila Tavares Glucose [Mass/Vol] 240 mg/dL Normal [facility] Comment on above: Performed By: #### A 1C #### [facility] [address] [place] [address] Dr. Nabila Tavares HbA1c (Bld) [Mass fraction] 10.0 % Critically high <=6.0 [facility] Comment on above: Performed By: #### A 1C #### [facility] [address] [place] [address] Dr. Nabila Tavares LIPID PROFILEon 08-23-2021 CHOL-HDL RATIO NORM SEE BELOW Normal [facility] Comment on above: Result Comment: 3.3 - 4.4 LOW RISK 4.4 - 7.1 AVERAGE RISK 7.1 - 11.0 MODERATE RISK >11.0 HIGH RISK Performed By: #### C MP, LIPID #### [facility] [address] [place] [address] Dr. Nabila Tavares Cholesterol [Mass/Vol] 217 mg/dL Critically high <=200 [facility] Comment on above: Performed By: #### C MP, LIPID #### [facility] [address] [place] [address] Dr. Nabila Tavares Cholesterol in HDL [Mass/Vol] 39 mg/dL Normal [facility] Comment on above: Performed By: #### C MP, LIPID #### [facility] [address] [address] [address] Nabila Tavares Cholesterol in LDL [Mass/Vol] 154.4 mg/dL Normal [facility] Comment on above: Performed By: #### C MP, LIPID #### [facility] [address] [place] [address] Dr. Nabila Tavares Cholesterol.total/Cho lesterol in HDL [Mass ratio] 5.6 {ratio} Normal [facility] Comment on above: Performed By: #### C MP, LIPID #### [facility] [address] [place] [address] Dr. Nabila Tavares HDL NORMAL > or = 60 mg/dl - LO W CARDIOVASCULAR RISK <40 mg/dl - HIGH CARDIOVASCULAR RISK Normal [facility] Comment on above: Performed By: #### C MP, LIPID #### [facility] [address] [place] [address] Dr. Nabila Tavares LDL CALC NORMAL SEE BELOW Normal [facility] Comment on above: Result Comment: <100 mg/dl OPTIMAL 100 - 129 mg/dl NEAR OR ABOVE OPTIMAL 130 - 159 mg/dl BORDERLINE HIGH 160 - 189 mg/dl HIGH >190 mg/dl VERY HIGH Performed By: #### C MP, LIPID #### [facility] [address] [place] [address] Dr. Nabila Tavares Triglyceride [Mass/Vol] 118 mg/dL Normal <=150 [facility] Comment on above: Performed By: #### C MP, LIPID #### [facility] [address] [place] [address] Dr. Nabila Tavares VLDL CALC 23.6 mg/dL Normal [facility] Comment on above: Performed By: #### C MP, LIPID #### [facility] [address] [address] [address] Nabila Tavares PROF 14(COMP METB)on 022 Albumin [Mass/Vol] 3.9 g/dL Normal 3.5-5.0 [facility] Comment on above: Performed By: #### C MP, LIPID #### [facility] [address] [place] [address] Dr. Nabila Tavares Albumin/Globulin [Mass ratio] 1.0 {ratio} Normal [facility] Comment on above: Performed By: #### C MP, LIPID #### [facility] [address] [place] [address] Dr. Nabila Tavares ALP [Catalytic activity/Vol] 55 U/L Normal 38-126 [facility] Comment on above: Performed By: #### C MP, LIPID #### [facility] [address] [place] [address] Dr. Nabila Tavares ALT [Catalytic activity/Vol] 33 U/L Normal 21-72 [facility] Comment on above: Performed By: #### C MP, LIPID #### [facility] [address] [place] [address] Dr. Nabila Tavares Anion gap [Moles/Vol] 11.5 mmol/L Normal [facility] Comment on above: Performed By: #### C MP, LIPID #### [facility] [address] [place] [address] Dr. Nabila Tavares AST [Catalytic activity/Vol] 18 U/L Normal 17-59 [facility] Comment on above: Performed By: #### C MP, LIPID #### [facility] [address] [place] [address] Dr. Nabila Tavares Bilirubin [Mass/Vol] 0.8 mg/dL Normal 0.2-1.3 [facility] Comment on above: Performed By: #### C MP, LIPID #### [facility] [address] [place] [address] Dr. Nabila Tavares Calcium [Mass/Vol] 9.4 mg/dL Normal 8.4-10.2 [facility] Comment on above: Performed By: #### C MP, LIPID #### [facility] [address] [place] [address] Dr. Nabila Tavares Chloride [Moles/Vol] 98 mmol/L Normal 98-107 [facility] Comment on above: Performed By: #### C MP, LIPID #### [facility] [address] [place] [address] Dr. Naibla Tavares CO2 [Moles/Vol] 31.8 mmol/L Critically high 22.0-30.0 [facility] Comment on above: Performed By: #### C MP, LIPID #### [facility] [address] [address] [address] Nabila Tavares Creatinine [Mass/Vol] 1.19 mg/dL Normal 0.66-1.25 [facility] Comment on above: Performed By: #### C MP, LIPID #### [facility] [address] [address] [address] Nabila Tavares EGFR-AF CANADIAN >60 Normal >=60 [facility] Comment on above: Performed By: #### C MP, LIPID #### [facility] [address] [place] [address] Dr. Nabila Tavares EGFR-NON AF CANADIAN >60 Normal >=60 [facility] Comment on above: Performed By: #### C MP, LIPID #### [facility] [address] [place] [address] Dr. Nabila Tavares Globulin (S) [Mass/Vol] 3.8 g/dL Normal [facility] Comment on above: Performed By: #### C MP, LIPID #### [facility] [address] [address] [address] Nabila Tavares Glucose [Mass/Vol] 311 mg/dL Critically high 74-106 [facility] Comment on above: Performed By: #### C MP, LIPID #### [facility] [address] [address] [address] Nabila Tavares Potassium [Moles/Vol] 4.3 mmol/L Normal 3.4-5.0 [facility] Comment on above: Performed By: #### C MP, LIPID #### [facility] [address] [address] [address] Nabila Tavares Protein [Mass/Vol] 7.7 g/dL Normal 6.1-8.2 [facility] Comment on above: Performed By: #### C MP, LIPID #### [facility] [address] [address] [address] Nabila Tavares Sodium [Moles/Vol] 137 mmol/L Normal 137-145 [facility] Comment on above: Performed By: #### C MP, LIPID #### [facility] [address] [address] [address] Nabila Tavares Urea nitrogen [Mass/Vol] 18.0 mg/dL Normal 9.0-20.0 [facility] Comment on above: Performed By: #### C MP, LIPID #### [facility] [address] [address] [address] Nabila Tavares Urea nitrogen/Creatinine [Mass ratio] 15.1 mg/mg Normal [facility] Comment on above: Performed By: #### C MP, LIPID #### [facility] [address] [address] [address] Nabila Tavares US RUMA DOP LEG [...] by: BIBIANA GUERIN Date: 2021-08-09 12:48 Normal [facility] PROTIMEon 07-28-2021 INR Coag (PPP) [Relative time] 1.86 {INR} Normal [facility] Comment on above: Performed By: #### P T #### [facility] [address] [place] [address] Dr. Nabila Tavares INR GUIDELINES SEE BELOW Normal [facility] Comment on above: Result Comment: ALANNA RED INR: 2.0 - 3.0 CONDITIONS NOT LISTED BELOW 2.5 - 3.5 FOR PROSTHETIC HEART VALVE REPLACEMENT 2.5 - 3.5 RECURRENT THROMBOSIS Performed By: #### P T #### [facility] [address] [address] [address] Nabila Tavares PT Coag (PPP) [Time] 19.3 s Critically high 9.0-11.6 [facility] Comment on above: Performed By: #### P T #### [facility] [address] [address] [address] Nabila Tavares PROTIMEon 05-17-2021 INR Coag (PPP) [Relative time] 1.74 {INR} Normal [facility] Comment on above: Performed By: #### P T ####[facility] [id number] [address]Dr. Nabila Tavares INR GUIDELINES SEE BELOW Normal [facility] Comment on above: Result Comment: ALANNA RED INR: 2.0 - 3.0 CONDITIONS NOT LISTED BELOW 2.5 - 3.5 FOR PROSTHETIC HEART VALVE REPLACEMENT 2.5 - 3.5 RECURRENT THROMBOSIS Performed By: #### P T ####[facility] [id number] [address]Dr. Nabila Tavares PT Coag (PPP) [Time] 18.1 s Critically high 9.0-11.6 [facility] Comment on above: Performed By: #### P T ####[facility] [address] [address]Dr. Nabila Tavares PROTIMEon 04-05-2021 INR Coag (PPP) [Relative time] 2.21 {INR} Normal [facility] Comment on above: Performed By: #### P T #### [facility] [address] [address] [address] Nabila Tavares INR GUIDELINES SEE BELOW Normal [facility] Comment on above: Result Comment: ALANNA RED INR: 2.0 - 3.0 CONDITIONS NOT LISTED BELOW 2.5 - 3.5 FOR PROSTHETIC HEART VALVE REPLACEMENT 2.5 - 3.5 RECURRENT THROMBOSIS Performed By: #### P T #### [facility] [address] [address] [address] Nabila Tavares PT Coag (PPP) [Time] 22.7 s Critically high 9.0-11.6 [facility] Comment on above: Performed By: #### P T #### [facility] [address] [address] [address] Nabila Tavares PT/INR Outpatient Ctr Perfor mon 03-18-2021 INR OP Cntr Performed 3.40 High 0.70-1.20 [facility] Comment on above: Result Comment: THER APEUTIC: Low Level Coumadin = 2.0 - 3.0 High Level Coumadin = 2.5 - 3.5 Testing performed at Outpatient Center Performed By: #### O PPTINR #### [facility] [address] [place] [address] , Aaron Talbot M.D. FCAP, FASCP Protime OP Cntr Performed 38.2 Sec Normal [facility] Comment on above: Performed By: #### O PPTINR #### [facility] [address] [facility] [place] [address] , Aaron Talbot M.D. FCAP, FASCP PROTIMEon 03-10-2021 INR Coag (PPP) [Relative time] {INR} Critically high [facility] Comment on above: Performed By: #### P T #### [facility] [address] [address] Odalys Medellin INR GUIDELINES SEE BELOW Normal [facility] Comment on above: Result Comment: ALANNA RED INR: 2.0 - 3.0 CONDITIONS NOT LISTED BELOW 2.5 - 3.5 FOR PROSTHETIC HEART VALVE REPLACEMENT 2.5 - 3.5 RECURRENT THROMBOSIS Performed By: #### P T #### [facility] [address] [id number] Odalys Medellin PT Coag (PPP) [Time] s Critically high 9.0-11.6 [facility] Comment on above: Performed By: #### P T #### [facility] [address] [id number] Odalys Medellin US EXT NON VASC LIMITED [...] GARO CARVAJAL Date: 2021-03-09 15:59 Normal [facility] Protime with INR ([facility] )on 02-16-2021 INR Coag (PPP) [Relative time] 2.1 {INR} Normal [facility] Comment on above: Result Comment: FLAG : H Reference Range 0.9-1.1 Moderate-intensity Warfarin Therapy 2.0-3.0 Higher-intensity Warfarin Therapy 3.0-4.0 PT Coag (PPP) [Time] 21.6 s Normal [facility] Comment on above: Result Comment: FLAG : H Reference Range: 9.0-11.5 Units: sec For additional information, please refer to http://education.Managed Systems.Experiment/faq/DVU126 (This link is being provided for informational/ educational purposes only.) THIS TEST WAS PERFORMED AT: [id number] [id number] AMADO PAUL MD PROTIMEon 02-10-2021 INR Coag (PPP) [Relative time] 1.32 {INR} Normal [facility] Comment on above: Performed By: #### P T ####[facility] [address] [address]Odalys Medellin INR GUIDELINES SEE BELOW Normal [facility] Comment on above: Result Comment: ALANNA RED INR: 2.0 - 3.0 CONDITIONS NOT LISTED BELOW 2.5 - 3.5 FOR PROSTHETIC HEART VALVE REPLACEMENT 2.5 - 3.5 RECURRENT THROMBOSIS Performed By: #### P T ####[facility] [address] [address]Odalys Med[place]in PT Coag (PPP) [Time] 14.0 s Critically high 9.0-11.6 [facility] Comment on above: Performed By: #### P T ####[facility] [id number] [place], [place] [address]IkmotdOdalys Medellin US RUMA DOP LEG RTon 02-08-20 [...] GARO CARVAJAL Date: 2021-02-07 13:35 Normal [facility] Vital Signs Date Time Vital Sign Value Performing Clinician Facility 06-25-2023 15:00-0500 Body height 177.8 cm Kae Lockwood [facility] 06-25-2023 15:00-0500 Body mass index (BMI) [Ratio] 36.87 kg/m2 Kae Lockwood Other [facility] Other 06-25-2023 15:00-0500 Body weight 116.58 kg Kae Lockwood Other [facility] Other 06-25-2023 15:00-0500 Diastolic blood pressure 76 mm[Hg] Kae Lockwood Other [facility] Other 06-25-2023 15:00-0500 Systolic blood pressure 136 mm[Hg] Kae Lockwood Other [facility] Other 03-07-2023 10:15-0400 Body height 177.8 cm Kae Lockwood Other [facility] Other 03-07-2023 10:15-0400 Body mass index (BMI) [Ratio] 33.43 kg/m2 Kae Lockwood Other [facility] Other 03-07-2023 10:15-0400 Body weight 105.69 kg Kae Lockwood Other [facility] Other 03-07-2023 10:15-0400 Diastolic blood pressure 68 mm[Hg] Kae Lockwood Other [facility] Other 03-07-2023 10:15-0400 Systolic blood pressure 106 mm[Hg] Kae Lockwood Other [facility] Other Encounters Encounter Date Encounter Type Care Provider Facility Start: 06-26-2023 End: 06-26-2023 ambulatory Kae Lockwood Other [facility] Other Start: 06-26-2023 Telephone encounter Kae Lockwood [facility] Start: 06-25-2023 End: 06-25-2023 ambulatory Kae Lockwood Other [facility] Start: 06-25-2023 Office outpatient vi sit 25 minutes Kae Lockwood [facility] Start: 03-07-2023 End: 03-07-2023 ambulatory Kae Lockwood Other [facility] Other Start: 03-07-2023 Encounter for genera l adult medical examination without abnormal findings Kae Lockwood [facility] Start: 03-07-2023 Periodic preventive med est patient 40-64yrs Kae Lockwood [facility] Start: 11-16-2021 End: 11-17-[address] BOOTHE LISTED REQUEST Facility:[facility] Start: 08-23-2021 End: 08-24-[address] KAE LOCKWOOD Facility:[facility] Start: 02-01-2022 Adult health examination Kae Lockwood Other [facility] [employer] Other Start: 08-09-2021 End: 08-10-2021 ambulatory JAREN ORTEGA Facility:[facility] Start: 07-28-2021 End: 07-29-[address] KAE LOCKWOOD Facility:[facility] Start: 05-17-2021 End: 05-18-[address] KEA LOCKWOOD Facility:[facility] Start: 04-05-2021 End: 04-06-2021 ambulatory [...] Comment on above: Performed By: #### P [facility] ####[facility] [address] [place], [place] [id number] Tavares Screening for malign ant neoplasm of prostate Kae Lockwood Other Payers Date Payer Category Payer Unknown [id number] 2.16.84 [id number] 1960 Unknown [id number] 2.16.84 [id number] 1960 Unknown [id number] 2.16.84 [id number] 1960 Unknown [id number] 2.16.84 [id number] 1960 Unknown [id number] 2.16.84 [id number] 1960 Unknown [id number] 2.16.84 [id number] 1960 Unknown [id number] 2.16.84 [id number] 1960 Unknown [id number] 2.16.84 [id number] 1960 Unknown [id number] 2.16.84 [id number] 1957 Medicare [id number] 1957 Self-pay [id number] Unknown [id number] 2.16.84 [id number] Unknown [id number] 2.16.84 [id number] Social History Date Type Detail Facility Unknown if ever smoked [facility] Other Sex Assigned At Sex Assigned At Bir th [facility] Other Evaluation note 06-25-2023 Note Date & [...] (ICD-10 - E11.65) diabetic eye exam annually [facility] Other Evaluation note 03-07-2023 Note Date & [...] patient is sent home pleased, without concerns. [facility] Other Evaluation note Note Date & Type Note Facility Evaluation note No Information [facility] Other History general Narrative - Reported Note Date & Type Note Facility History general Narrative - Reported Type Medical History Type 2 diabetes nohelia itus with hyperglycemia Medical History Hyperlipidemia, unspecified Surgical History skull surgery Hospitalization History see surgical hx [facility] Other Summary Purpose Family History No Family History Records FoundNo Family History Records Found Advance Directives No Advanced Directives Records FoundNo Advanced Directives Records Found Additional Source Comments (unrecognized sect ion and content) No Status Records FoundNo Status Records Found INFORMATION SOURCE (unrecogn ized section and content) DATE CREATED AUTHOR 08/12/2021 [facility] DATE CREATED AUTHOR AUTHOR'S ORGANIZ ATION 11/24/2021 [...] BE BASED ON THE PRIMARY CLINICAL RECORDS. [facility]. provides no warranty or guarantee of the accuracy or completeness of information in this document.
--- NOTE | 2025-04-20 12:05 | XR_ITS ---
[place] [address] Patient Name: FLORIAN CARR MRN: [id number] date: 1960 Sex: M Assigned Patient Location: [place] Current Patient Location: [place] Accession/Order Number: [id number] Exam Date: 04/20/2025 11:55 Report Date: 04/20/2025 12:49 At the request of: ANIYA GALLOWAY MD Procedure: XR lumbar spine 2-3V LUMBAR SPINE - 3 views CLINICAL HISTORY: Left Lumbar Radiculitis COMPARISON: None FINDINGS: Vertebral body heights appear maintained. Scattered endplate and facet joint degenerative changes with moderate disc space narrowing at L1-L2 and L5-S1. SI joints also demonstrate degenerative change. XR/XR lumbar spine 2-3V IMPRESSION: MODERATE DISC SPACE NARROWING L1-L2 AND L5-S1. Impression dictated by: Markus Poole Jr., DJoseOJose 04/20/2025 12:49 PM Dictation Location: [place] [address] Electronically authenticated by: [id number] Date: 04/20/2025 12:49
== END 2025-04-20 11:02 | disposition home or self-care (01) ==
LOC: US 11:02
PROVIDERS: PCP Family Medicine; Visit Provider Family Medicine
DX: M79.605 Pain in left leg (principal); M54.16 Radiculopathy, lumbar region
CPT/HCPCS: 72100; 93971

== ENCOUNTER 2025-07-01 07:19 | Outpatient (OUT) | payer MEDICARE, SELFPAY ==
--- OUTSIDE RECORDS SUMMARY | 2025-06-25 05:40 | XMS_ITS | Continuity of Care Document ---
Author Organization [facility] Address [address] [place] [address] Phone Care Team Providers Care Counter Sales Person Name Role Phone Kae Lockwood MD Primary Care Provider Kae Lockwood MD Attending Provider Care Teams Patient Care Team Team Status: Active Member Role/Relationship Status Dates Kae Lockwood MD Primary Care Provider Active Visit Care Team Team Status: Inactive Member Role/Relationship Status Dates Kae Lockwood MD Primary Care Provider Active Start: April 20, 2025 End: April 20, 2025Leida Gomes ProviderActiveStart: April 20, 2025 End: April 20, 2025 Patient Care Team Team Status: Inactive Member Role/Relationship Status Dates Kae Lockwood MD Primary Care Provider Active Start: June 25, 2025 End: June 25, 2025Leida Gomes ProviderActiveStart: June 25, 2025 End: June 25, 2025 Chief Complaint and Reason for Visit Chief Complaint Admit Date Back Pain April 20, 2025 10 :15am wellness June 25, 2025 9:16am Reason for Visit Admit Date Bilateral impacted cerumen April 20, 2025 10:15am Class 2 obesity with body ma ss index (BMI) of 35 to 39.9 without comorbidity April 20, 2025 10:15am Left leg pain April 20, 2025 10 :15am Left lumbar radiculitis April 20 10:15am Type 2 diabetes mellitus with hyperglyce shannon April 20, 2025 10:15am Class 2 obesity with body ma ss index (BMI) of 35 to 39.9 without comorbidity June 25, 2025 9:16am Essential (primary) hypertension Decembe r 2024 9:16am Hyperlipidemia, unspecified June 9:16am Left lumbar radiculitis June 25, 2 025 9:16am Screening PSA (prostate specific antigen ) June 25, 2025 9:16am Type 2 diabetes mellitus with hyperglyce shannon June 25, 2025 9:16am Wellness examination June 25, 2025 9:16am Allergies, Adverse Reactions, Alerts Allergen Type Severity Reaction Last Updated Verified Status No Known Allergies Allergy Unknown June 25, 2025 9:44amYesActive Social History Smoking Status Status Start Date End Date Date of Observa tion Never smoked tobacco (finding) June 25, 2025 9:46am Observation Status Observation Response Date of Response Legal Sex Male (finding) Sex Assigned At BirthMaleSeptember 1959 Family History Relationship Condition Age at Onset Recorded Date/T delmi brother Heart disease Unknown fatherMalignant neoplasmUnknownFamily history of lung cancerUnknownsister HypertensionUnknown Problems Active Problems Problem Diagnosis/Recorded Date Onset Date Stat us Screening PSA (prostate spec ific antigen) June 24, 2024 10:39am Unknown Active Left lumbar radiculitis April 20, 2025 9:43am Unkno wn Active Type 2 diabetes mellitus wit h hyperglycemia June 24, 2024 8:21am Unknown Active Wellness examination June 24, 2024 10:38am Unkno wn Active Hyperlipidemia, unspecified June 24, 2024 8:21am Unknown Active Left leg pain April 20, 2025 9:44am Unknown Ac tive Essential (primary) hypertension June 24, 2024 8 :21am Unknown Active Class 2 obesity with body ma ss index (BMI) of 35 to 39.9 without comorbidity April 20, 2025 10:02am Unknown Active Bilateral impacted cerumen April 20, 2025 10:01am U nknown Active Medications Medication Status Dose Units Route Directions Qty Days Refills S tart Date Stop Date End Date Reason(s) Instructions Adherence Glipizide-Metformin 5-500 mg tablet Discontinued 0 .ROUTE.RJQRYLG2390Mkvt 2023 9:00amOctober 2023 10:06amTAKE 1 TABLET BY MOUTH 2 TIMES A DAYGlipizide-Metformin 5-500 mg tabletDiscontinued0.ROUTE .KOXWCDI8441Zjojbpu 2023 10:06amJanuary 2024 12:44pmTAKE 1 TABLET BY MOUTH 2 TIMES A DAYGlipizide-Metformin 5-500 mg tabletDiscontinued0.ROUTE .LWWNIUZ9457Nqmojpc 2024 12:44pmApril 2024 7:29amTAKE 1 TABLET BY MOUTH 2 TIMES A DAYAtorvastatin 40 mg nvcxgiQwrjfwvmmddn38KWBBHsynp460Rmufvxb 2024 4:16pmApril 2024 12:11pmGlipizide-Metformin 5-500 mg tablet Discontinued0.ROUTE.WRJPUVI0187Zlvnr 2024 7:29amJuly 2024 3:31pmTAKE 1 TABLET BY MOUTH 2 TIMES A DAYAtorvastatin 40 mg tabletActive0.ROUTE.PKNMWHX859 November 07, 2024 12:11pmTAKE 1 TABLET BY MOUTH DAILYComplies with drug therapy Glipizide-Metformin 5-500 mg tabletDiscontinued0.ROUTE.KWVAWNB4452Wzjy 2024 3:31pmOctober 2024 8:35amTAKE 1 TABLET BY MOUTH 2 TIMES A DAYGlipizide- Metformin 5-500 mg tabletActive0.ROUTE.RIDOOTF1963Llfnsqv 2024 8:35amTAKE 1 TABLET BY MOUTH 2 TIMES A DAYComplies with drug therapyTizanidine 4 mg tablet Hxswlhkwwhpx1FMSLZvtsz at bedtime as needed for muscle gobifnfvfv978Smgvdcl 2024 11:00pmDecember 2024 9:45amMethylprednisolone 4 mg tablets,dose pack Pshnqzxbtowu8JJbdf package xfvpyrdjig665Thwzmhw 6th, 2025 11:00pmDecember 2024 9:45amPO PER PKG DIR for 6 daysGlipizide-Metformin 5-500 mg tablet Fvszpepmfxgf8CNUAMZachn dailyApril 2023 11:00pmApril 2023 9:01am Atorvastatin 40 mg wiezodYxgwwnbhumug16TGSMRocyvEaiym 2023 11:00pmJanuary 2024 4:16pmGlipizide-Metformin 5-500 mg ablxkaLeitzunkpsey1UVGSHYtprq ezncl4499Qjrar 2023 9:01amJuly 2023 9:00am Vital Signs Vital Reading Result Reference Range Collection Date/Time Height 70 [in_i] April 20, 2025 9:72nuZpzbwk413.30 kgOctober 2024 9:23amHeart Rate72 /min 60-100October 2024 9:26amBP Wogsgsbx425 mm[Hg]100-140October 2024 9:26amBP Idjpwydak64 mm[Hg]60-100October 2024 9:26amBMI (Body Mass Index) 35.2 kg/r1Bvhygap 2024 9:29zyAybmxe60 [in_i]June 25, 2025 9:43am Dlafgx366.11 kgDecember 2024 9:43amHeart Rate67 /zii94-521Vyryvqli 2024 9:43amBP Zsmlydby244 mm[Hg]100-140De[facility] 20[facility] 9:43amBP Hhyjcsrmw74 mm[Hg]60-100Deceer 2024 9:43amBMI (Body Mass Index)36.7 kg/w0Hvitwnzx 2024 9:43am Advance Directives Advance Directive Response Recorded Date/ Time Advance Directives No June 9:52am Insurance Providers Guarantor Ruben Galvez Address [address] [place], [place] [phone] Info.Home Phone: Coverage Status Update:2024 Payer Group Member ID Coverage Type Subscriber Relationship to Subscriber Effective Date Expiration Date MMO Id: [id number] [facility] Id: [id number] [address] [place], [place] [address] Home Phone: SelfMedicare [id number] [facility] Id: [id number] [address] [place] [address] Home Phone: SelfUnited Healthcare Id: [id number] [facility] Id: [id number] [address] [place], [place] [id number] Home Phone: Encounters Encounter Location(s) Arrival/Admit Date Discharge/Departure Date Discharge/Departure Disposition Provider(s) Departed Physician/ Provider Office Visit -[facility] April 20, 2025 10:15am April 20, 2025 10:49am Discharged to home care or self care (routine discharge) Kae Lockwood MD Departed Physician/ Provider Office Visit -[facility] June 25, 2025 9:16am June 25, 2025 10:39am Discharged to home care or self care (routine discharge) Kae Lockwood MD Recent Diagnosis Onset Date Admit Date Bilateral impacted cerumen Unknown Octob er 2024 10:15am Class 2 obesity with body ma ss index (BMI) of 35 to 39.9 without comorbidity Unknown April 20, 2025 10:15 am Left leg pain Unknown April 20 10:15am Left lumbar radiculitis Unknown April 20, 2025 10:15am Type 2 diabetes mellitus with hyperglycemia Unkn own April 20, 2025 10:15am Class 2 obesity with body ma ss index (BMI) of 35 to 39.9 without comorbidity Unknown June 25, 2025 9:1 6am Essential (primary) hypertension Unknown June 25, 2025 9:16am Hyperlipidemia, unspecified Unknown Dece mber 2024 9:16am Left lumbar radiculitis Unknown June 25, 2025 9:16am Screening PSA (prostate specific antigen) Unknow n June 25, 2025 9:16am Type 2 diabetes mellitus with hyperglycemia Unkn own June 25, 2025 9:16am Wellness examination Unknown June 252024 9:16am Assessments Diagnosis Onset Date Resolution Status Admit Date Bilateral impacted cerumen acuteOctober 2024 10:15amClass 2 obesity with body mass index (BMI) of 35 to 39.9 without comorbidityacuteOctober 2024 10:15amLeft leg painacute April 20, 2025 10:15amLeft lumbar radiculitisacuteOctober 2024 10:15am Type 2 diabetes mellitus with hyperglycemiaacuteOctober 2024 10:15amClass 2 obesity with body mass index (BMI) of 35 to 39.9 without comorbidityacute June 25, 2025 9:16amEssential (primary) hypertensionacuteDecember 2024 9:16amHyperlipidemia, unspecifiedacuteDecember 2024 9:16amLeft lumbar radiculitisacuteK[facility] 2024 9:16amScreening PSA (prostate specific antigen)[facility] 2024 9:16amType 2 diabetes mellitus with hyperglycemiaacuteKensington [facility] 2024 9:16amWellness examinationacuteKensington Hospital 2024 9:16am Plan of Treatment Author Kae Lockwood [facility]Autho[facility] 20[facility] 10:33amImproved and stable today. check labs, continue atorvastatin Check A1C and microalbumen Take medication as prescribed, keep follow up appointments, get any testing that's been ordered done in a timely fashion. Do not smoke. Call if any questions or problems.For Diabetes: Patient is advised to work on healthy diet choices and appropriate servings, weight control, regular exercise as directed, and reduce fat intake. Check home blood sugars as directed. Check feet regularly to be sure no sores or numbness are developing. Call if low sugar reactions occur, and be aware that lower sugars may happen with increased exercise. Last eye exam at [facility]. Continue efforts of healthy diet and exercise. Personalized health advice was given to the beneficiary to health education of preventative counseling services or programs aimed at reducing identified risk factors and improving self-management or community-based lifestyle interventions to reduce health risks and promote self-management and wellness, including physical activity and nutrition. Likely causing the L lateral ankle swelling. Recommend compression hose. Author Kae Lockwood [facility] HospitalAuthoredTr[facility] 2024 3:26pmcheck xray check US r/o DVT Recommend PT or pain mgmt based on xray results. recommend OTC debrox. he has been using this so requests ENT referral. Check A1C Take medication as prescribed, keep follow up appointments, get any testing that's been ordered done in a timely fashion. Do not smoke. Call if any questions or problems.For Diabetes: Patient is advised to work on healthy diet choices and appropriate servings, weight control, regular exercise as directed, and reduce fat intake. Check home blood sugars as directed. Check feet regularly to be sure no sores or numbness are developing. Call if low sugar reactions occur, and be aware that lower sugars may happen with increased exercise. Continue efforts of healthy diet and exercise. Future Tests Future scheduled test information is unavailable Pending Tests Test Name Ordered Date Scheduled Date Comprehensive Metabolic Panel June 25 10:11am XR lumbar spine 2-3V*April 20, 2025 9:43amUS venous duplex LE LTOctober 2024 9:44am Future Visits Future appointment information is unavailable Future Procedures Procedure Name Ordered Date Scheduled Date Complete Blood Count Auto Diff June 25 10:11am Lipid PanelDecember 2024 10:11amMicroAlb Creat Ratio,UDecember 2024 10:11amPSA Screen (Yearly Only)June 25, 2025 10:11am Future Medications Future medication information is unavailable Patient Instructions Patient instructions are unavailable
--- OUTSIDE RECORDS SUMMARY | 2025-07-01 07:24 | XMS_ITS | Patient Health Record ---
Author Organization [facility] Address [address] [place] [address] [place] [address] Support Name Relationship Address Phone Adry Galvez Emergency Contact [address] [place] [phone] Ruben Galvez Guarantor Unknown [phone] Reason For Referral No Information Plan Of Treatment No Information Insurance Providers Payer Name Payer Address Payer Phone Subscriber Number Group Number Insured Name Patient Relationship to Insured Coverage Start Date Coverage End Date Medical [facility] [address] [place] [address] [id number] Ruben Galvez Self - patient is the insured [employer] [facility] [address] [place], [place] [id number] Galvezf - patient is the insured
--- OUTSIDE RECORDS SUMMARY | 2025-07-01 07:24 | XMS_ITS | Clinical Summary ---
Author Organization [employer] [facility] Address [id number] [place] [address] Care Team Providers Care Certified First Assistant Name Role Phone Unavailable Primary Care Provider Unavailabl e Social History Tobacco UseTypesPacks/DayYears UsedDateSmoking Tobacco: Never AssessedChildcare AnswerDate DychnqbpSszvskziwJijoiai34/12/2019EmploymentAnswerDate Recorded GsehuxvseoHnheavr58/12/2019Sex and Gender InformationValueDate RecordedSex Assigned at BirthNot on fileLegal UuuSxub4602/18/2015 11:56 AM EDTGender Identity Not on fileSexual OrientationNot on file Plan of Treatment Not on file Medical Devices Not on file
--- OUTSIDE RECORDS SUMMARY | 2025-07-01 07:24 | XMS_ITS | Patient Health Record ---
Author Organization [facility] [place] Address [address] [place] [address] Care Team Providers Care Custodial Services Manager Name Role Phone Mandie KRAMER, Kae Primary Care Provider Unavailab le Reason For Referral No Information Medications Medication SIG (Take, Route, Frequency, Duration) Notes Start Date End Date Status Furosemide ActiveOcuflox 0.3 %ONE DROP OS Ophthalmic Four times a day; Duration: 7 days 03/30/2016Active Plan Of Treatment No Information Insurance Providers Payer Name Payer Address Payer Phone Subscriber Number Group Number Insured Name Patient Relationship to Insured Coverage Start Date Coverage End Date [facility] [address] [place], [place] [id number] Ruben Galvez Self - patient is the insured [address] [place] [address] [address] [address] [place] [address] [phone], ClydeSelf - patient is the [id number] 2014
--- OUTSIDE RECORDS SUMMARY | 2025-07-01 07:24 | XMS_ITS | Clinical Summary ---
Author Organization [facility] Address [address] [place] [address], [address] [place] [address] Care Team Providers Care Bridge Toll Collector Name Role Phone Kae Lockwood MD Primary Care Provider [phone] Allergies No known active allergies Medications No known medications Active Problems ProblemNoted DateDiagnosed DateThrombophlebitis of right arm06/05/2014 Superficial wrvvwdiznxpfpdbm17/21/2014Pulmonary zemlflibp12/20/2014Scalp udmhoixmgx55/20/2014Laceration of left elbow06/04/2014Respiratory failure 05/30/2014Head lxgwey4805/26/2014 Overview (05/26/2014): Depressed skull agrydjgk29/11/2014 Overview (05/26/2014): \ Pneumocephalus, rxspxvsob57/11/2014 Immunizations ImmunizationAdministration DatesNext DueTd, unspecified tnumukvzopc12/11/2014 Social History Tobacco UseTypesPacks/DayYears UsedDateSmoking Tobacco: NeverAlcohol UseStandard Drinks/WeekCommentsNot Asked0 (1 standard drink = 0.6 oz pure alcohol)Sex and Gender InformationValueDate RecordedSex Assigned at BirthNot on fileLegal Sex Male05/26/2014 8:54 PM ESTGender IdentityNot on fileSexual OrientationNot on file Last Filed Vital Signs Vital SignReadingTime TakenCommentsBlood Blhaxibg261/8902 12:24 PM EST Fwjfz08985/12/2015 12:24 PM ZJYAzyzazzgozw71.4 ??C (97.5 ??F)08/27/2014 12:24 PM ESTRespiratory Pdny461508/11/2013 12:00 AM ESTOxygen Nchowkuwrp85%06/11/2014 8:00 AM ESTInhaled Oxygen Concentration--Ywmmxa57.6 kg (180 lb)08/27/2014 12:24 PM DMRBsyxeb702.5 cm (5' 9.5 )08/27/2014 12:24 PM ESTBody Mass Index26. 12:24 PM EST Plan of Treatment Not on file Insurance Advance Directives * Full Code (Latest Code Status on File) Date ActivatedDate ZdxpkvweizwXtptyudb88/12/2014 12:12 PM06/11/2014 1:16 PM * Full Code Date ActivatedDate CrbwmotiubmMzwxvovb35/11/2014 11:25 PM05/27/2014 12:12 PM Care Teams Team MemberRelationshipSpecialtyStart DateEnd Date Kae Lockwood MD PCP - General07/17/14
[2025-07-01 08:06] LABS: Hematocrit 42.1 % (42.0-54.0); Hemoglobin 14.2 g/dL (14.0-18.0); Immature Granulocytes Abs Auto 0.04 10^3/uL (0.00-0.03); Immature Granulocytes Pct Auto 0.5 % (0.0-0.5); Lymphocytes Absolute Auto 1.0 10^3/uL (1.2-3.8); Mean Corpuscular HGB Conc 33.7 g/dL (29.9-35.2); Mean Corpuscular Hemoglobin 29.6 pg (25.9-34.0); Mean Corpuscular Volume 87.7 fL (80.0-94.0); Platelet Count 231 10^3/uL (150-450); Red Blood Count 4.80 10^6/uL (4.70-6.10); White Blood Count 7.8 10^3/uL (4.0-11.0)
[2025-07-01 09:18] LABS: Alanine Aminotransferase 57 U/L (16-63); Albumin Globulin Ratio 1.1; Albumin Level 3.5 g/dL (3.4-5.0); Alkaline Phosphatase 55 U/L (46-116); Anion Gap 13.6; Aspartate Amino Transferase 42 U/L (15-37); Blood Urea Nitrogen 12.0 mg/dL (7.0-18.0); Calcium 9.0 mg/dL (8.5-10.1); Carbon Dioxide 28.7 mmol/L (21.0-32.0); Chloride 103 mmol/L (98-107); Cholesterol 145 mg/dL (<=200); Estimated GFR (African America >60 (>=60 mL/min/1.73m^2); Estimated GFR (Non-African Ame >60 (>=60 mL/min/1.73m^2); Globulin 3.3 g/dL; Glucose 223 mg/dL (74-106); HDL Cholesterol 37 mg/dL (40-60); Potassium 4.3 mmol/L (3.5-5.1); Sodium 141 mmol/L (136-145); Total Protein 6.8 g/dL (6.4-8.2); Triglycerides 50 mg/dL (<=150); VLDL CHOLESTEROL 10.0 mg/dL
[2025-07-01 11:00] LABS: Microalbum Creatinine Ratio Ur 47.2 mg/g (0.0-29.9)
== END 2025-07-01 07:20 | disposition home or self-care (01) ==
LOC: LAB 07:21
PROVIDERS: PCP Family Medicine; Visit Provider Family Medicine
DX: E11.65 Type 2 diabetes mellitus with hyperglycemia (principal); E78.2 Mixed hyperlipidemia; I10 Essential (primary) hypertension; Z12.5 Encounter for screening for malignant neoplasm of prostate
CPT/HCPCS: 36415; 80053; 80061; 82043; 82570; 85025; G0103